=== PATIENT | female | born 1925 | race Caucasian/White ===

== ENCOUNTER 2017-02-24 07:22 | Emergency (ER) | payer OTHER ==
[2017-02-24 07:47] VITALS: TEMP 98.3; BMI 30.3
[2017-02-24] MEDS ORDERED: BENZOCAINE/MENTH/CETYLPYRD CL 1 EACH LOZENGE MM PRN (08:46)
--- NOTE | 2017-02-24 09:17 | PDOC ---
History of Present Illness <Katya Mccurdy - Last Filed: 02/24/17 09:50> - General History Source: Patient Exam Limitations: No Limitations - History of Present Illness Initial Comments: 02/24/17 08:47 The patient is an 89F with a PMH of HTN who presents to the ED with 3 days of cold symptoms. She states that she has a sore throat, cough, slight SOB, and chills. She denies fever, CP, nausea, vomiting, abd pain. She lives alone and does all of her ADL. She has no other acute complaints. <Juan Miguel Olivares - Last Filed: 02/24/17 10:06> - General Chief Complaint: Cold Symptoms Stated Complaint: COLD SYMPTOMS Time Seen by Provider: 02/24/17 08:39 Past History <Katya Mccurdy - Last Filed: 02/24/17 09:50> - Past Medical History COPD: No HTN: Yes Other medical history: PARKINSON'S, OSTEOPEROSIS - Immunization History Immunization Up to Date: Yes - Suicide/Smoking/Psychosocial Hx Smoking Status: No Smoking History: Never smoked Have you smoked in the past 12 months: No Number of Cigarettes Smoked Daily: 0 Hx Alcohol Use: No Drug/Substance Use Hx: No <Juan Miguel Olivares - Last Filed: 02/24/17 10:06> - Past Medical History Allergies/Adverse Reactions: Allergies Allergy/AdvReac Type Severity Reaction Status Date / Time aspirin Allergy Severe Verified 02/24/17 07:47 Home Medications: Ambulatory Orders Irbesartan [Avapro] 150 mg PO BID 04/08/11 Gabapentin 300 mg PO HS capsule 10/13/12 Ropinirole HCl [Requip] 0.25 mg PO DAILY tablet 12/30/14 Albuterol Sulfate Inhaler - [Ventolin HFA Inhaler -] 2 inh IH Q4H PRN #1 inh Amlodipine Besylate [Norvasc -] 5 mg PO DAILY 05/20/15 Atenolol [Tenormin] 100 mg PO DAILY 02/24/17 Carbidopa/Levodopa [Rytary ER 61.25 mg-245 mg Cap] 1 each PO TID 02/24/17 Ibandronate Sodium [Boniva] 0 mg .ROUTE Q30D 02/24/17 Review of Systems - Review of Systems Able to Perform ROS?: Yes Comments:: 02/24/17 09:17 GENERAL/CONSTITUTIONAL: Positive for chills. No fever. No weakness. HEAD, EYES, EARS, NOSE AND THROAT: Positive for sore throat. No change in vision. No ear pain or discharge. GASTROINTESTINAL: No nausea, vomiting, diarrhea, constipation, or abdominal pain. GENITOURINARY: No dysuria, frequency, hematuria, or change in urination. CARDIOVASCULAR: No chest pain, palpitations, or lightheadedness. RESPIRATORY: Positive for cough and mild SOB. No wheezing or hemoptysis. MUSCULOSKELETAL: No joint or muscle swelling or pain. No neck or back pain. SKIN: No rash or lesions. NEUROLOGIC: No headache, numbness, tingling, weakness, loss of consciousness, or change in strength/sensation. ENDOCRINE: No increased thirst. No abnormal weight change. HEMATOLOGIC/LYMPHATIC: No anemia, easy bleeding, or history of blood clots. ALLERGIC/IMMUNOLOGIC: No hives or skin allergy. Is the patient limited [place]an proficient: No <Juan Miguel Olivares - Last Filed: 02/24/17 10:06> *Physical Exam - Vital Signs Last Vital Signs Temp Pulse Resp BP Pulse Ox 98.3 F 93 H 20 145/73 95 02/24/17 07:45 02/24/17 07:45 02/24/17 07:45 02/24/17 07:45 02/24/17 07:45 <Katya Mccurdy - Last Filed: 02/24/17 09:50> - Vital Signs Last Vital Signs Temp Pulse Resp BP Pulse Ox 98.3 F 93 H 20 145/73 95 02/24/17 07:45 02/24/17 07:45 02/24/17 07:45 02/24/17 07:45 02/24/17 07:45 - Physical Exam Comments: 02/24/17 09:18 GENERAL: Well developed, well nourished. Awake and alert. No acute distress. HEENT: Erythematous throat without tonsillar enlargement. No lymphadenopathy. Normocephalic, atraumatic. Hearing grossly normal. Moist mucous membranes. PERRLA, EOMI. No conjunctival pallor. Sclera are non-icteric. NECK: Supple. Full ROM. No JVD. Carotid pulses 2+ and symmetric, without bruits. CARDIOVASCULAR: Regular rate and rhythm. No murmurs, rubs, or gallops. Distal pulses are 2+ and symmetric. PULMONARY: No evidence of respiratory distress. Lungs clear to auscultation bilaterally. No wheezing, rales or rhonchi. ABDOMINAL: Soft. Non-tender. Non-distended. No rebound or guarding. No organomegaly. Normoactive bowel sounds. GENITOURINARY: No CVA tenderness bilaterally. MUSCULOSKELETAL: Normal range of motion at all joints. No bony deformities or tenderness. EXTREMITIES: No cyanosis. No clubbing. No edema. No calf tenderness. SKIN: Warm and dry. Normal capillary refill. No rashes. No jaundice. NEUROLOGICAL: Alert, awake, appropriate. Cranial nerves 2-12 intact. Normal speech. Gait is normal without ataxia. PSYCHIATRIC: Cooperative. Good eye contact. Appropriate mood and affect. <Juan Miguel Olivares - Last Filed: 02/24/17 10:06> ED Treatment Course - RADIOLOGY Radiology Studies Ordered: Category Date Time Status CHEST PA & LAT [RAD] Stat Radiology 02/24/17 08:44 Ordered <Juan Miguel Olivares - Last Filed: 02/24/17 10:06> Medical Decision Making - Medical Decision Making 02/24/17 09:19 The patient is a 89F with a PMH of HTN and Parkinson's who presents to the ED with cold symptoms. Will order CXR to r/o PNA. She is very well appearing and vitals are stable, afebrile. Will give symptomatic treatment for sore throat and reassess. <Juan Miguel Olivares - Last Filed: 02/24/17 10:06> *DC/Admit/Observation/Transfer - Discharge Dispostion Admit: No <Katya Mccurdy - Last Filed: 02/24/17 09:50> - Discharge Dispostion Admit: No <Juan Miguel Olivares - Last Filed: 02/24/17 10:06> Diagnosis at time of Disposition: Upper respiratory infection Qualifiers: URI type: unspecified URI Qualified Code(s): J06.9 - Acute upper respiratory infection, unspecified - Discharge Dispostion Disposition: HOME Condition at time of disposition: Stable - Referrals Referrals: Marisel Hines [Primary Care Provider] - - Patient Instructions Printed Discharge Instructions: DI for Viral Upper Respiratory Infection -- Adult Additional Instructions: Please return to the ER if symptoms persist, worsen, or new symptoms arise. Please follow up with your primary care physician in 2-3 days. Please return to the ER if you have any signs or symptoms of chest pain, shortness of breath, uncontrollable fever, chills, nausea, vomiting, numbness, tingling, or weakness in any part of your body, changes in vision, or slurred speech. Please take your cepacol every few hours as needed for sore throat. Print Language: SLOVAK - Post Discharge Activity
--- NOTE | 2017-02-24 09:50 | PDOC ---
Attending Attestation - Resident Resident Name: Juan Miguel Olivares - ED Attending Attestation I have performed the following: I have examined & evaluated the patient, The case was reviewed & discussed with the resident, I agree w/resident's findings & plan, Exceptions are as noted - HPI HPI: 89 yo F history HTN presents with nasal congestion, runny nose, nonproductive cough, sinus congestion for past few days. She states she has not had fever. No change in appetite. She states she came to ED to make sure she did not have pneumonia. - Physicial Exam PE: GENERAL: Awake, alert, and fully oriented, in no acute distress. Well-appearing. HEAD: No signs of trauma EYES: PERRLA, EOMI, sclera anicteric, conjunctiva clear ENT: Auricles normal inspection, hearing grossly normal, nares patent, oropharynx clear without exudates. Dry mucosa NECK: Normal ROM, supple, no lymphadenopathy, JVD, or masses LUNGS: Breath sounds equal, clear to auscultation bilaterally. No wheezes, and no crackles. Dry cough. HEART: Regular rate and rhythm, normal S1 and S2, no murmurs, rubs or gallops ABDOMEN: Soft, nontender, normoactive bowel sounds. No guarding, no rebound. No masses EXTREMITIES: Normal range of motion, no edema. No clubbing or cyanosis. No cords, erythema, or tenderness NEUROLOGICAL: Cranial nerves II through XII grossly intact. Normal speech, normal gait SKIN: Warm, Dry, normal turgor, no rashes or lesions noted. - Medical Decision Making 02/24/17 09:49 CXR reviewed. No acute findings on exam. Stable for DC home.
[2017-02-24 10:13] VITALS: BP 119/69; PULSE 80
== END 2017-02-24 10:17 | disposition home or self-care (01) ==
LOC: JER 07:22
DX: J06.9 Acute upper respiratory infection, unspecified (principal); I10 Essential (primary) hypertension; G20 Parkinson's disease
CPT/HCPCS: 71020-TC; 99282-25